=== PATIENT | male | born 1945 | race Caucasian/White ===

== ENCOUNTER 2022-11-26 09:40 | Emergency (ER) | payer MEDICARE ==
[~2022-11-26] VITALS: Ht 170.2 cm; Wt 77.0 kg
[2022-11-26] MEDS ORDERED: BACTRIM DS1 TAB PO (13:09)
[2022-11-26 13:16] VITALS: BP 148/74
== END 2022-11-26 13:29 | disposition home or self-care (01) ==
LOC: ED 09:40
DX: L02.212 Cutaneous abscess of back [any part, except buttock and flank] (principal)

== ENCOUNTER 2023-09-08 15:11 | Emergency (ER) | payer MEDICARE ==
[2023-09-08] VITALS (11 sets, daily range): BP systolic 129–142; BP diastolic 69–89
[~2023-09-08] VITALS: Ht 170.2 cm; Wt 81.6 kg
[~2023-09-08 15:11] MED LIST: BACTRIM DS1 TAB PO
[2023-09-08] MEDS ORDERED: METHOCARBAMOL500 MG PO (18:34)
[2023-09-08] MEDS ORDERED: NAPROXEN500 MG PO (18:34)
[2023-09-08] MEDS ORDERED: LORTAB 5/3255 MG PO (18:34)
[2023-09-08] MEDS ORDERED: PREDNISONE20 MG PO (18:34)
== END 2023-09-08 18:52 | disposition home or self-care (01) ==
LOC: ED 15:11
DX: M25.552 Pain in left hip (principal)

== ENCOUNTER 2024-05-19 17:05 | Emergency (ER) | payer MEDICARE ==
[~2024-05-19] VITALS: Ht 170.2 cm; Wt 75.2 kg
[~2024-05-19 17:05] MED LIST changes: +LORTAB 5/3255 MG PO; +METHOCARBAMOL500 MG PO; +NAPROXEN500 MG PO; +PREDNISONE20 MG PO
[2024-05-19 17:16] VITALS: BP 136/72
[2024-05-19] MEDS ORDERED: KETOROLAC TROMETHAMINE 30 MG/ML SDV IM ONE (17:35)
[2024-05-19 17:51] VITALS: BP 149/74
[2024-05-19 17:52] LABS: BASO% 0.5 % (0-3); EOS% 6.6 % (0-8); HEMATOCRIT 48.3 % (39.0-50.0); HEMOGLOBIN 15.6 g/dl (14.0-18.0); IMMATURE GRANULOCYTES 0.1 % (0.0-5.0); LYMPH% 20.8 % (15-41); MEAN CELL VOLUME 90.6 fL CALC (80.0-100.0); MEAN CORPUSCULAR HGB 29.3 pG CALC (26.0-32.0); MEAN CORPUSCULAR HGB CONC 32.3 g/dL CAL (32.0-36.0); MONO% 7.3 % (2-13); NEUT# 5.08 thou/uL (1.82-7.42); NEUT% 64.7 % (42-76); RED BLOOD COUNT 5.33 mill/uL (4.70-6.10); RED CELL DISTRI WIDTH 12.9 % (11.5-15.5)
[2024-05-19 18:00] VITALS: BP 129/74
[2024-05-19 18:05] LABS: BILIRUBIN, TOTAL 0.8 mg/dL (0.2-1.3); CREATININE 1.1 mg/dL (0.7-1.3); POTASSIUM 3.8 mmol/l (3.5-5.1); TOTAL PROTEIN 6.5 g/dL (6.3-8.2)
[2024-05-19 18:15] VITALS: BP 135/68
[2024-05-19 18:31] VITALS: BP 136/64
[2024-05-19 18:40] VITALS: BP 136/64
== END 2024-05-19 18:44 | disposition home or self-care (01) ==
LOC: ED 17:05
PROVIDERS: Family Medicine
DX: M60.9 Myositis, unspecified (principal); Z20.822 Contact with and (suspected) exposure to COVID-19